=== PATIENT | male | born 1975 | race Hispanic/Latino ===

== ENCOUNTER 2018-05-09 18:48 | Emergency (ER) | payer SELFPAY ==
[2018-05-09 19:00] VITALS: BP 142/89
[2018-05-09 19:26] LABS: Hematocrit 49.7 % (35.5-45.6); Hemoglobin 16.7 gm/dl (11.8-15.2); Mean Corpuscular HGB Conc 34 % (32-34); Mean Corpuscular Volume 93 fl (84-94); Platelet Count 281 K/mm3 (140-440); Red Blood Count 5.33 M/mm3 (3.65-5.03); Red Cell Distribution Width 14.1 % (13.2-15.2)
[2018-05-09 19:40] LABS: BUN/Creatinine Ratio 14; Blood Urea Nitrogen 14 mg/dL (9-20); Calcium 9.7 mg/dL (8.4-10.2); Hemolysis Index 11
[2018-05-09] MEDS ORDERED: NORCO 5/325 PO ONE (19:54)
[2018-05-09] MEDS ORDERED: ALUM-MAG HYDROX-SIMETH 200-200-20MG/5ML PO ONE (19:54)
[2018-05-09] MEDS ORDERED: LIDOCAINE VISCOUS 2% PO ONE (19:54)
--- NOTE | 2018-05-09 20:35 | Emergency Department Report ---
ED Fall HPI - General Chief Complaint: Extremity Injury, Lower Stated Complaint: LEFT SIDE NUMB/CANT WALK Time Seen by Provider: 05/09/18 19:44 Source: patient Mode of arrival: Wheelchair - History of Present Illness Initial Comments: Patient is a 43-year-old -[place] male who states, will follow this morning now her left wrist and left ankle pain and swelling pain rated at 7/10 achy exacerbated by movement and relieved by nothing there's no numbness no tingling or paralysis patient pt states unable to walk on left ankle. There is no laceration or abrasion is no bleeding. Patient does endorse intermittent epigastric pain intermittently for past year has history of GERD not taking her medications at this time there is no sob no n/v no diaphoresis no dizziness no lightheadedness. Complaint: fall Onset/Timin -: days(s) Fall From: standing When Fall Occurred: other (this am ) Fall Witnessed: no Place Fall Occurred: home Loss of Consciousness: none Prolonged Down Time?: no Symptoms Prior to Fall: none Location - Extremities: Left: Hand, Ankle Severity: moderate Severity scale (0 -10): 4 Quality: aching Context: tripped/slipped Associated Symptoms: denies: numbness, weakness - Related Data Previous Rx's Medication Instructions Recorded Last Taken Type Albuterol Sulfate [Ventolin HFA] 2 puff IH Q4H PRN #1 hfa.aer.ad 04/13/14 Unknown Rx Azithromycin [Zithromax Z-ALEX] 250 mg PO DAILY #6 tablet 04/13/14 Unknown Rx Cyclobenzaprine [Flexeril] 10 mg PO BID PRN #20 tablet 05/09/18 Unknown Rx Famotidine [Pepcid] 20 mg PO BID #60 tablet 05/09/18 Unknown Rx Menthol/Camphor [[place] 1 applicatio TP QID PRN #1 tube 05/09/18 Unknown Rx Ointment] Naproxen 500 mg PO BID PRN #30 tablet 05/09/18 Unknown Rx Allergies Allergy/AdvReac Type Severity Reaction Status Date / Time No Known Allergies Allergy Unverified 04/13/14 14:10 ED Review of Systems ROS: Stated complaint: LEFT SIDE NUMB/CANT WALK Other details as noted in HPI Constitutional: denies: chills, fever Eyes: denies: eye pain, eye discharge, vision change ENT: denies: ear pain, throat pain Respiratory: denies: cough, shortness of breath, wheezing Cardiovascular: denies: chest pain, palpitations Endocrine: no symptoms reported Gastrointestinal: denies: abdominal pain, nausea, diarrhea Genitourinary: denies: urgency, dysuria Musculoskeletal: denies: back pain, joint swelling, arthralgia Skin: denies: rash, lesions Neurological: denies: headache, weakness, paresthesias Psychiatric: denies: anxiety, depression Hematological/Lymphatic: denies: easy bleeding, easy bruising ED Past Medical Hx - Past Medical History Hx Hypertension: Yes Hx Psychiatric Treatment: Yes (DEPRESSION) Hx Asthma: Yes Additional medical history: Heart Cath-2010 - Surgical History Past Surgical History?: No Additional Surgical History: Left ankle Fx in 2 places - Social History Smoking Status: Current Every Day Smoker Substance Use Type: Alcohol - Medications Home Medications: Home Medications Medication Instructions Recorded Confirmed Last Taken Type Albuterol Sulfate [Ventolin HFA] 2 puff IH Q4H PRN #1 hfa.aer.ad 04/13/14 Unknown Rx Azithromycin [Zithromax Z-ALEX] 250 mg PO DAILY #6 tablet 04/13/14 Unknown Rx Cyclobenzaprine [Flexeril] 10 mg PO BID PRN #20 tablet 05/09/18 Unknown Rx Famotidine [Pepcid] 20 mg PO BID #60 tablet 05/09/18 Unknown Rx Menthol/Camphor [[place] 1 applicatio TP QID PRN #1 tube 05/09/18 Unknown Rx Ointment] Naproxen 500 mg PO BID PRN #30 tablet 05/09/18 Unknown Rx ED Physical Exam - General Limitations: No Limitations General appearance: alert, in no apparent distress - Head Head exam: Present: atraumatic, normocephalic, normal inspection - Expanded Head Exam Expanded Head exam: Absent: laceration, abrasion, contusion, hematoma, racoon eyes, gudino's sign, general tenderness, tenderness of temporal artery, CSF rhinorrhea, CSF otorrhea - Eye Eye exam: Present: normal appearance, PERRL, EOMI Pupils: Present: normal accommodation - ENT ENT exam: Present: normal exam, mucous membranes moist, TM's normal bilaterally, normal external ear exam - Neck Neck exam: Present: normal inspection, full ROM. Absent: tenderness, meningismus, lymphadenopathy, thyromegaly - Expanded Neck Exam Expanded Neck exam: Absent: tenderness, midline deformity, anterior neck swelling, thyroid mass, carotid bruit, tracheal deviation - Respiratory Respiratory exam: Present: normal lung sounds bilaterally. Absent: respiratory distress, wheezes, stridor, chest wall tenderness - Cardiovascular Cardiovascular Exam: Present: regular rate, normal rhythm, normal heart sounds. Absent: systolic murmur, diastolic murmur, rubs, gallop - GI/Abdominal GI/Abdominal exam: Present: soft, normal bowel sounds. Absent: bruit, hernia - Rectal Rectal exam: Present: deferred - Extremities Exam Extremities exam: Present: normal inspection, full ROM, tenderness (left ankle , left wrist pain ), normal capillary refill, joint swelling, calf tenderness. Absent: pedal edema - Expanded Upper Extremity Exam Left Hand Wrist exam: Present: full ROM, tenderness (mahad ), other (rom intact unrestricted distal pulses intact ). Absent: swelling, abrasion, laceration, ecchymosis, deformity, crepidus, dislocation, erythema, amputation, nail avulsio n, subungual hematoma Neuro motor exam: Present: wrist extension intact, thumb opposition intact, thumb IP flexion intact, thumb adduction intact, fingers 2-5 abduction intact Neurosensory exam: Present: 2-point discrimination, radial nerve intact, ulnar nerve intact, median nerve intact Vascular: Present: normal capillary refill, radial pulse, brachial pulse, ulnar pulse. Absent: vascular compromise, pulse deficit radial art, pulse deficit ulnar art, pulse deficit brachial art - Expanded Lower Extremity Exam Left Ankle exam: Present: normal inspection, full ROM, tenderness, swelling (mild left lateral ankle swelling no deformity pain with rotation neg thompsons test ). Absent: abrasion, laceration, ecchymosis, deformity, crepidus, dislocation, erythema, anterior draw sign Foot/Toe exam: Present: normal inspection, full ROM. Absent: tenderness Neuro vascular tendon exam: Present: no vascular compromise. Absent: pulse deficit, motor deficit, sensory deficit, tendon deficit Gait: Positive: observed and limited by pain - Back Exam Back exam: Present: normal inspection, full ROM. Absent: tenderness, CVA tenderness (R), CVA tenderness (L), muscle spasm, paraspinal tenderness, vertebral tenderness, rash noted - Expanded Back Exam Expanded Back exam: Absent: saddle anesthesia Back exam: Negative Straight Leg Raising: Left, Right - Neurological Exam Neurological exam: Present: alert, oriented X3, CN II-XII intact. Absent: motor sensory deficit, reflexes normal - Expanded Neurological Exam Expanded Patient oriented to: Present: person, place, time Speech: Present: fluid speech Cranial nerves: EOM's Intact: Normal, Gag Reflex: Normal, Tongue Deviation: Normal, Nystagmus: Normal, Facial Sensation: Normal Cerebellar function: Finger to Nose: Normal, Heel to Bach: Normal, Romberg: Normal Upper motor neuron: Jake Neglect: Normal, Pronator Drift: Normal, Babinski Sign: Normal, Sensory Extinction: Normal Sensory exam: Upper Extremity Light Touch: Normal, Upper Extremity Pin Prick: Normal, Upper Extremity Temperature: Normal, UE 2 Point Discrimination: Normal, Lower Extremity Light Touch: Normal, Lower Extremity Pin Prick: Normal, Lower Extremity Temperature: Normal, LE 2 Point Discrimination: Normal Motor strength exam: RUE: 5, LUE: 5, RLE: 5, LLE: 5 DTR: knee (R): 2+, knee (L): 2+, ankle (R): 2+, ankle (L): 2+ Best Eye Response (Lindsey): (4) open spontaneously Best Motor Response ([place]): (6) obeys commands Best Verbal Response (Lindsey): (5) oriented Lindsey Total: 15 ED Course Vital Signs 05/09/18 18:52 Temperature 98 F Pulse Rate 63 Respiratory 18 Rate Blood Pressure 142/89 O2 Sat by Pulse 98 Oximetry ED Medical Decision Making - Lab Data Result diagrams: 05/09/18 19:13 05/09/18 19:13 - Radiology Data Radiology results: report reviewed, image reviewed Findings [facility] [address] [place] [address] XRay Report Signed Patient: CARTER ALMODOVAR MR#: [id number] : 10/04/1985 Acct:[id number] Age/Sex: 32 / M ADM Date: 05/09/18 Loc: ED Attending Dr: Ordering Physician: BIBI SANTOS NP Date of Service: 05/09/18 Procedure(s): XR abdomen 1V ap Accession Number(s): [id number] cc: BIBI SANTOS NP Fluoro Time In Minutes: FINAL REPORT EXAM: XR ABDOMEN 1V AP HISTORY: abd pain TECHNIQUE: Frontal view of the abdomen and pelvis Comparison: None FINDINGS: The bowel gas pattern is nonobstructive with air in nondistended loops of small bowel and colon. There is no definite evidence of pneumoperitoneum nor organomegaly on this single frontal view. The bony structures are unremarkable. IMPRESSION: 1. No definite plain film evidence of an acute intra-abdominal process on this single frontal view. If there is a clinical concern of an acute intra-abdominal process, CT abdomen and pelvis may be helpful. Transcribed By: ED Dictated By: PJ MAN MD Electronically Authenticated By: PJ MAN MD Signed Date/Time: 05/09/182125 Findings [facility] [address] [place] [address] XRay Report Signed Patient: PIA PELAEZ MR#: [id number] : 1975 Acct:[id number] Age/Sex: 43 / M ADM Date: 05/09/18 Loc: ED Attending Dr: Ordering Physician: MARTHA TOBIN MD Date of Service: 05/09/18 Procedure(s): XR ankle 3+V LT Accession Number(s): [id number] cc: MARTHA TOBIN MD Fluoro Time In Minutes: FINAL REPORT PROCEDURE: XR ANKLE 3+V LT TECHNIQUE: LEFT ankle radiographs, AP, lateral, and oblique views. CPT 31315 HISTORY: pain/swelling r/t fall COMPARISON: No prior studies are available for comparison. FINDINGS: Bony alignment and joint spaces are within normal limits. An acute fracture is not identified. Minimal degree osteophyte formation is noted. Soft tissues are unremarkable. No radiopaque foreign bodies. IMPRESSION: Minimal osteoarthritis No acute fracture. Transcribed By: [facility] Dictated By: VESTA TOLENTINO Electronically Authenticated By: VESTA TOLENTINO Signed Date/Time: 05/09/182147 - Medical Decision Making X-ray wrist normal fractional soft tissue abnormality ankle mild osteoarthritis no acute fracture no soft tissue abnormality plan Otoniel wrap ankle NSAIDs muscle relaxants analgesic balm refill Pepcid by mouth twice a day follow with PCP in 2-3 days ankle and wrist exercises . Chest pain relieved with antacid given an EGD EKG normal sinus rhythm Return to emergency should symptoms worsen patient verbalized agreement and understanding with saline Critical care attestation.: If time is entered above; I have spent that time in minutes in the direct care of this critically ill patient, excluding procedure time. ED Disposition Clinical Impression: GERD (gastroesophageal reflux disease) Qualifiers: Esophagitis presence: without esophagitis Qualified Code(s): K21.9 - Gastro-esophageal reflux disease without esophagitis Wrist strain Qualifiers: Encounter type: initial encounter Laterality: left Qualified Code(s): S66.912A - Strain of unspecified muscle, fascia and tendon at wrist and hand level, left hand, initial encounter Left ankle strain Qualifiers: Encounter type: initial encounter Qualified Code(s): S96.912A - Strain of unspecified muscle and tendon at ankle and foot level, left foot, initial encounter Osteoarthritis of ankle, left Qualifiers: Osteoarthritis type: unspecified Qualified Code(s): M19.072 - Primary osteoarthritis, left ankle and foot Disposition: TO HOME OR SELFCARE Is pt being admited?: No Does the pt Need Aspirin: No Condition: Stable Instructions: Osteoarthritis (ED), Ankle Exercises (GEN), Wrist Injury (ED) Prescriptions: Cyclobenzaprine [Flexeril] 10 mg PO BID PRN #20 tablet PRN Reason: Muscle Spasm Famotidine [Pepcid] 20 mg PO BID #60 tablet Menthol/Camphor [[place] Ointment] 1 applicatio TP QID PRN #1 tube PRN Reason: pain Naproxen 500 mg PO BID PRN #30 tablet PRN Reason: pain Referrals: JACQUI ANAYA MD [Primary Care Provider] - 3-5 Days Forms: Work/School Release Form(ED) Time of Disposition: 22:15
--- NOTE | 2018-05-09 21:47 | XRay Report ---
FINAL REPORT PROCEDURE: XR WRIST 3+V LT TECHNIQUE: LEFT wrist radiographs, including AP, lateral, and oblique views. CPT 50556 HISTORY: pain/swelling r/t fall COMPARISON: No prior studies are available for comparison. FINDINGS: Fracture (s) and/or Dislocation(s): None . Alignment: Normal . Joint space(s): Normal . Soft tissues: Normal . Bone mineralization: Normal . Foreign bodies: None . IMPRESSION: Normal Examination.
--- NOTE | 2018-05-09 21:48 | XRay Report ---
FINAL REPORT PROCEDURE: XR ANKLE 3+V LT TECHNIQUE: LEFT ankle radiographs, AP, lateral, and oblique views. CPT 37588 HISTORY: pain/swelling r/t fall COMPARISON: No prior studies are available for comparison. FINDINGS: Bony alignment and joint spaces are within normal limits. An acute fracture is not identified. Minima l degree osteophyte formation is noted. Soft tissues are unremarkable. No radiopaque foreign bodies. IMPRESSION: Minimal osteoarthritis No acute fracture.
== END 2018-05-09 22:30 | disposition home or self-care (01) ==
LOC: ED 18:48
DX: S66.912A Strain of unspecified muscle, fascia and tendon at wrist and hand level, left hand, initial encounter (principal); S96.912A Strain of unspecified muscle and tendon at ankle and foot level, left foot, initial encounter; K21.9 Gastro-esophageal reflux disease without esophagitis; I10 Essential (primary) hypertension; F32.9 Major depressive disorder, single episode, unspecified; J45.909 Unspecified asthma, uncomplicated; F17.200 Nicotine dependence, unspecified, uncomplicated; W01.198A Fall on same level from slipping, tripping and stumbling with subsequent striking against other object, initial encounter; Y93.89 Activity, other specified; Y92.89 Other specified places as the place of occurrence of the external cause; Y99.8 Other external cause status
CPT/HCPCS: 36415; 80048; 84484; 85027; 93005; 93010; 99284

== ENCOUNTER 2020-06-19 07:25 | Emergency (ER) | payer SELFPAY ==
[2020-06-19] MEDS ORDERED: KETOROLAC 30 MG/1 ML INJ IV ONE (07:55)
[2020-06-19] MEDS ORDERED: SODIUM CHLORIDE 0.9% 1000 ML 1,000 ML IV ONE (07:55)
[2020-06-19] MEDS ORDERED: MORPHINE 2 MG/1 ML INJ IV ONE (07:55)
--- NOTE | 2020-06-19 07:59 | Emergency Department Report ---
ED Back Pain/Injury HPI - General Chief Complaint: Back Pain/Injury Stated Complaint: ABDOMINAL PAIN Time Seen by Provider: 06/19/20 07:40 Source: EMS Limitations: No Limitations - History of Present Illness Initial Comments: 45-year-old male, history of gastritis, presents to ED with right-sided back pain. Patient states pain began approximately 2 weeks ago. Patient states t here was initially a "knot "in his back in that area. Patient states now the knot has resolved, however pain is present. Patient states he coughed on yesterday and felt something pop in the mid right back. Patient now has increased pain with movement. Patient denies any shortness of breath, fever, hematuria, dysuria, urinary frequency. Patient states he used Tylenol and icy hot patches without relief. MD Complaint: back pain -: week(s) (2) Similar Symptoms Previously: No Radiation: none Severity: moderate Quality: sharp Consistency: constant Improves With: immobilization Worsens With: movement Context: unknown Associated Symptoms: cough. denies: chest pain, numbness, difficulty urinating, incontinence, fever/chills, abdominal pain, nausea/vomiting, shortness of breath Treatments Prior to Arrival: acetaminophen, other (IcyHot patch) - Related Data Previous Rx's Medication Instructions Recorded Last Taken Type Naproxen [Naprosyn] 500 mg PO BID #20 tablet 06/19/20 Unknown Rx methOCARBAMOL [Robaxin TAB] 500 mg PO Q8HR PRN #20 tablet 06/19/20 Unknown Rx traMADoL [Ultram] 50 mg PO Q6HR PRN #7 tablet 06/19/20 Unknown Rx Allergies Allergy/AdvReac Type Severity Reaction Status Date / Time No Known Allergies Allergy Verified 06/19/20 07:39 ED Review of Systems ROS: Stated complaint: ABDOMINAL PAIN Other details as noted in HPI Comment: All other systems reviewed and negative Constitutional: denies: chills, fever Respiratory: cough. denies: shortness of breath Cardiovascular: denies: chest pain Gastrointestinal: denies: abdominal pain, nausea, vomiting Genitourinary: denies: dysuria, frequency, hematuria Musculoskeletal: back pain Neurological: denies: weakness, numbness, paresthesias ED Past Medical Hx - Past Medical History Hx Hypertension: Yes Hx Psychiatric Treatment: Yes (DEPRESSION) Hx Asthma: Yes Additional medical history: Heart Cath-2010 - Surgical History Additional Surgical History: Left ankle Fx in 2 places - Social History Smoking Status: Current Every Day Smoker Substance Use Type: Marijuana - Medications Home Medications: Home Medications Medication Instructions Recorded Confirmed Last Taken Type Naproxen [Naprosyn] 500 mg PO BID #20 tablet 06/19/20 Unknown Rx methOCARBAMOL [Robaxin TAB] 500 mg PO Q8HR PRN #20 tablet 06/19/20 Unknown Rx traMADoL [Ultram] 50 mg PO Q6HR PRN #7 tablet 06/19/20 Unknown Rx ED Physical Exam - General Limitations: No Limitations General appearance: alert, in no apparent distress - Head Head exam: Present: atraumatic, normocephalic - Eye Eye exam: Present: normal appearance, EOMI - ENT ENT exam: Present: mucous membranes moist - Neck Neck exam: Present: normal inspection - Respiratory Respiratory exam: Present: normal lung sounds bilaterally. Absent: respiratory distress - Cardiovascular Cardiovascular Exam: Present: regular rate, normal rhythm - GI/Abdominal GI/Abdominal exam: Present: soft. Absent: distended, tenderness - Extremities Exam Extremities exam: Present: normal inspection - Back Exam Back exam: Present: CVA tenderness (R), paraspinal tenderness (Right mid back) - Neurological Exam Neurological exam: Present: alert, oriented X3. Absent: motor sensory deficit - Psychiatric Psychiatric exam: Present: normal affect, normal mood - Skin Skin exam: Present: warm, dry, intact, normal color ED Course Vital Signs 06/19/20 06/19/20 06/19/20 07:33 07:35 08:00 Temperature 98.5 F Pulse Rate 64 74 Respiratory 18 12 15 Rate Blood Pressure 145/87 145/87 O2 Sat by Pulse 98 97 Oximetry 06/19/20 06/19/20 06/19/20 08:30 09:00 09:30 Temperature Pulse Rate 75 66 Respiratory 14 17 16 Rate Blood Pressure 140/73 154/89 O2 Sat by Pulse 96 97 97 Oximetry 06/19/20 10:00 Temperature Pulse Rate Respiratory 16 Rate Blood Pressure 126/66 O2 Sat by Pulse 96 Oximetry ED Medical Decision Making - Lab Data Result diagrams: 06/19/20 08:10 06/19/20 08:10 - Radiology Data Radiology results: report reviewed, image reviewed - Medical Decision Making 45-year-old man presents to ED with right midthoracic pain x2 weeks. Vitals are normal except for mildly elevated blood pressure. Labs are normal including UA. Chest x-ray and CT abdomen pelvis showed no acute findings. Pain is likely secondary to muscle strain. Patient has received IV fluids, Toradol, and morphine. He is feeling much better at this time. Will discharge home with prescriptions. Outpatient follow-up advised, return precautions given. - Differential Diagnosis Kidney stone, pyelonephritis, pneumonia, pneumothorax Critical care attestation.: If time is entered above; I have spent that time in minutes in the direct care o f this critically ill patient, excluding procedure time. ED Disposition Clinical Impression: Acute thoracic myofascial strain Disposition: TO HOME OR SELFCARE Is pt being admited?: No Condition: Stable Instructions: How to Use Cold Therapy, [id number], Muscle Strain, [id number] Prescriptions: Naproxen [Naprosyn] 500 mg PO BID #20 tablet methOCARBAMOL [Robaxin TAB] 500 mg PO Q8HR PRN #20 tablet PRN Reason: Muscle Spasm traMADoL [Ultram] 50 mg PO Q6HR PRN #7 tablet PRN Reason: Pain Referrals: PRIMARY CARE, [Primary Care Provider] - 3-5 Days [facility] [Provider Group] - 3-5 Days Time of Disposition: 10:19
[2020-06-19 08:10] LABS: Bilirubin,Urine NEG (Negative); Blood,Urine NEG (Negative); Color,Urine Yellow (Yellow); Protein,Urine <15 mg/dL mg/dL (Negative); Urobilinogen,Urine < 2.0 mg/dL (<2.0)
[2020-06-19 08:53] LABS: Basophils % (Auto) 0.7 % (0.0-1.8); Eosinophils # (Auto) 0.2 K/mm3 (0.0-0.4); Eosinophils % (Auto) 3.7 % (0.0-4.3); Hematocrit 41.6 % (35.5-45.6); Hemoglobin 14.2 gm/dl (11.8-15.2); Lymphocytes # (Auto) 1.6 K/mm3 (1.2-5.4); Lymphocytes % (Auto) 31.1 % (13.4-35.0); Mean Corpuscular HGB Conc 34 % (32-34); Mean Corpuscular Volume 94 fl (84-94); Monocytes # (Auto) 0.6 K/mm3 (0.0-0.8); Monocytes % (Auto) 12.3 % (0.0-7.3); Platelet Count 294 K/mm3 (140-440); Red Blood Count 4.43 M/mm3 (3.65-5.03); Red Cell Distribution Width 13.5 % (13.2-15.2)
--- NOTE | 2020-06-19 08:59 | XRay Report ---
CHEST 1 VIEW 06/19/2020 8:43 AM INDICATION / CLINICAL INFORMATION: right posterior chest pain. COMPARISON: None available. FINDINGS: SUPPORT DEVICES: None. HEART / MEDIASTINUM: No significant abnormality. LUNGS / PLEURA: No significant pulmonary or pleural abnormality. No pneumothorax. ADDITIONAL FINDINGS: No significant additional findings. IMPRESSION: 1. No acute findings. Signer Name: Godfrey Beach MD Signed: 06/19/2020 8:55 AM Workstation Name: [id number]
[2020-06-19 09:15] LABS: Alanine Aminotransferase 26 units/L (7-56); Albumin 3.9 g/dL (3.9-5); BUN/Creatinine Ratio 13; Blood Urea Nitrogen 13 mg/dL (9-20); Calcium 8.4 mg/dL (8.4-10.2); Hemolysis Index 14
[2020-06-19 09:16] LABS: Bilirubin,Direct < 0.2 mg/dL (0-0.2)
--- NOTE | 2020-06-19 10:07 | Cat Scan Report ---
CT abdomen pelvis wo con INDICATION: right flank pain. TECHNIQUE: All CT scans at this location are performed using CT dose reduction for ALARA by means of automated e xposure control. COMPARISON: None available. FINDINGS: Lung bases are clear of acute disease. Liver, spleen, pancreas, kidneys and adrenals are negative on this noncontrast exam. Abdominal aorta is normal in size. No adenopathy. Pelvis Normal appendix. Urinary bladder and distal ureters are negative. The right ureter can be followed th roughout its length, and no calculi can be identified. Prostate is very mildly enlarged. No significa nt bowel abnormalities. No acute skeletal lesions. IMPRESSION: 1. No significant abnormality. Signer Name: Roc Grant MD Signed: 06/19/2020 10:02 AM Workstation Name: [id number]
[2020-06-19 10:41] VITALS: BP 126/66
== END 2020-06-19 10:41 | disposition home or self-care (01) ==
LOC: ED 07:25
DX: S29.012A Strain of muscle and tendon of back wall of thorax, initial encounter (principal); I10 Essential (primary) hypertension; F32.9 Major depressive disorder, single episode, unspecified; J45.909 Unspecified asthma, uncomplicated; F17.200 Nicotine dependence, unspecified, uncomplicated; F12.10 Cannabis abuse, uncomplicated; Z79.899 Other long term (current) drug therapy; X58.XXXA Exposure to other specified factors, initial encounter; Y93.89 Activity, other specified; Y92.89 Other specified places as the place of occurrence of the external cause; Y99.8 Other external cause status
CPT/HCPCS: 36415; 71045; 74176; 80048; 80076; 81001; 85025; 96361; 96374; 96375; 99284; J1885; J2270; J7030

== ENCOUNTER 2021-08-12 17:32 | Emergency (ER) | payer SELFPAY ==
[2021-08-12] MEDS ORDERED: NALOXONE 0.4 MG/1 ML INJ IV PRN (17:57)
--- NOTE | 2021-08-12 17:58 | Event Note ---
Date: 08/12/21 Verbal report received from emergency medical services. EMS documentation not available at time of chart dictation Medical screening examination note: 46-year-old gentleman brought to the hospital by EMS with an EMS articulated complaint of convulsive activity, no trauma, found in bed, possible overdose, patient had prehospital diminishment of mental status, which improved after Narcan administration. The patient is awake, breathing spontaneously, and moving 4 extremities. Laboratory studies, EKG, as needed Narcan, noncontrast CT scan of the brain ordered, detailed history and physical to be performed by ER provider Vital Signs 08/12/21 17:51 Temperature 98.1 F Pulse Rate 81 Respiratory 16 Rate Blood Pressure 168/82 [Right] O2 Sat by Pulse 96 Oximetry
[2021-08-12 18:23] LABS: Basophils % (Auto) 0.2 % (0.0-1.8); Eosinophils # (Auto) 0.1 K/mm3 (0.0-0.4); Eosinophils % (Auto) 0.6 % (0.0-4.3); Hematocrit 47.5 % (35.5-45.6); Lymphocytes % (Auto) 22.3 % (13.4-35.0); Mean Corpuscular HGB Conc 34 % (32-34); Mean Corpuscular Volume 92 fl (84-94); Monocytes # (Auto) 0.7 K/mm3 (0.0-0.8); Platelet Count 346 K/mm3 (140-440); Red Blood Count 5.15 M/mm3 (3.65-5.03); Red Cell Distribution Width 13.7 % (13.2-15.2)
--- NOTE | 2021-08-12 18:25 | XRay Report ---
CHEST 1 VIEW INDICATION / CLINICAL INFORMATION: Altered Mental Status STUDY TIME: 1804 COMPARISON: 06/19/2019 FINDINGS: SUPPORT DEVICES: None HEART / MEDIASTINUM: No significant abnormality. LUNGS / PLEURA: No significant acute pulmonary or pleural abnormality. No pneumothorax. ADDITIONAL FINDINGS: No significant additional findings. Signer Name: Rashid Gomez MD Signed: 08/12/2021 6:21 PM Workstation Name: [id number]
[2021-08-12 18:34] LABS: INR 0.93 (0.87-1.13)
[2021-08-12 18:37] LABS: Alanine Aminotransferase 24 units/L (7-56); Albumin 4.7 g/dL (3.9-5); BUN/Creatinine Ratio 12; Blood Urea Nitrogen 14 mg/dL (9-20); Calcium 9.2 mg/dL (8.4-10.2); Hemolysis Index 6
--- NOTE | 2021-08-12 18:51 | Emergency Department Report ---
ED General Adult HPI - General Chief complaint: Altered Mental Status Stated complaint: Chief complaint: I do not remember what happened to me Time Seen by Provider: 08/12/21 18:49 Source: patient, family, EMS (Verbal report received from emergency medical services. EMS documentation not available at time of chart dictation ), RN notes reviewed, old records reviewed Mode of arrival: Stretcher Limitations: Other (Patient does not remember what happened) - History of Present Illness Initial comments: The patient is a 46-year-old gentleman. He is brought to the hospital by EMS with an EMS articulated complaint of probable overdose, nontraumatic, found in bed, with response to Narcan. Patient himself states that he snorted something by nose, for recreational reasons, which was provided to him by a friend. He does not know what he snorted. His at the bedside states that the patient was unresponsive and had 2 convulsive events, and she had to perform [id number]. The patient himself denies headache, neck pain, chest pain, abdominal pain, shortness of breath, homicidality, suicidality, hallucinations, access to guns or firearms. He denies urinary symptoms. He notes that he is a hospital at this time. To the best of his recollection, this has not happened to him in the past -: Sudden Severity scale (0 -10): 0 Consistency: now resolved Improves with: medication Associated Symptoms: denies other symptoms, other (Postevent confusion, history of convulsion) - Related Data Previous Rx's Medication Instructions Recorded Last Taken Type Naloxone HCl [Narcan Nasal Thida] 4 mg NS PRN PRN #1 spray 08/12/21 Unknown Rx Ondansetron [Zofran Odt] 4 mg PO Q8HR PRN #20 tab.rapdis 08/12/21 Unknown Rx Pantoprazole [Protonix] 40 mg PO QDAY #30 tablet 08/12/21 Unknown Rx Allergies Allergy/AdvReac Type Severity Reaction Status Date / Time No Known Allergies Allergy Verified 06/19/20 07:39 ED Review of Systems ROS: Stated complaint: OVERDOSE Other details as noted in HPI Constitutional: malaise. denies: fever Eyes: denies: eye discharge ENT: denies: epistaxis Respiratory: denies: cough Cardiovascular: denies: chest pain Gastrointestinal: denies: abdominal pain Neurological: confusion Psychiatric: denies: anxiety, depression, auditory hallucinations, visual hallucinations, homicidal thoughts, suicidal thoughts ED Past Medical Hx - Past Medical History Hx Hypertension: Yes Hx Psychiatric Treatment: Yes (DEPRESSION) Hx Asthma: Yes Additional medical history: Heart Cath-2010 - Surgical History Additional Surgical History: Left ankle Fx in 2 places - Social History Smoking Status: Current Every Day Smoker Substance Use Type: Marijuana - Medications Home Medications: Home Medications Medication Instructions Recorded Confirmed Last Taken Type Naloxone HCl [Narcan Nasal Thida] 4 mg NS PRN PRN #1 spray 08/12/21 Unknown Rx Ondansetron [Zofran Odt] 4 mg PO Q8HR PRN #20 tab.rapdis 08/12/21 Unknown Rx Pantoprazole [Protonix] 40 mg PO QDAY #30 tablet 08/12/21 Unknown Rx ED Physical Exam - General Limitations: No Limitations General appearance: alert, anxious - Head Head exam: Present: atraumatic, normocephalic - Eye Eye exam: Present: EOMI. Absent: normal appearance (Pinpoint pupils are noted bilaterally), nystagmus - ENT ENT exam: Present: mucous membranes moist - Neck Neck exam: Present: normal inspection - Respiratory Respiratory exam: Present: normal lung sounds bilaterally. Absent: respiratory distress - Cardiovascular Cardiovascular Exam: Present: regular rate, normal rhythm. Absent: systolic murmur, diastolic murmur, rubs, gallop - GI/Abdominal GI/Abdominal exam: Present: soft, normal bowel sounds - Rectal Rectal exam: Present: deferred - Extremities Exam Extremities exam: Present: normal inspection - Back Exam Back exam: Present: normal inspection - Neurological Exam Neurological exam: Present: alert, oriented X3 - Psychiatric Psychiatric exam: Present: normal affect, normal mood - Skin Skin exam: Present: warm, dry, intact, normal color. Absent: rash ED Course Vital Signs 08/12/21 08/12/21 17:51 20:03 Temperature 98.1 F Pulse Rate 81 Respiratory 16 Rate Blood Pressure 168/82 [Right] O2 Sat by Pulse 96 Oximetry O2 Sat by Pulse 99 Oximetry [ Digit-Finger] - Reevaluation(s) Reevaluation #1: 08/12/21 19:18 Differential diagnosis, include but not limited to: Opioid overdose, electrolyte derangement, thyroid derangement, intracranial hemorrhage Assessment and plan: 46-year-old gentleman who reports being in his usual state of health, then snorted or ingested an unknown substance provided to him by a friend, for recreational reasons, who is awake, and alert to name, not homicidal or suicidal, cooperative, with small pupils, response to Narcan as per EMS, highly suspicious for accidental opioid ingestion and overdose. Laboratory studies nonactionable. Chest x-ray and noncontrast CT scan of the brain nonactionable. Observed patient in this ER for clinical sobriety. Discussed this with the patient and family. They articulated understanding. Next 08/12/21 20:02 Laboratory studies unremarkable. Patient given water which she drank without difficulty. A little bit later, he had some mild nausea and vomiting. There was some redness in his emesis. His sister is at the bedside, Mrs. Patience Vang; [phone] With the patient's permission, discussed his history, physical, laboratory studies and clinical impression. Patient made n.p.o. at this time. Zofran and Protonix ordered. Most likely Elsi-Reyes tear. Discussed this with the patient and his sister. Observe pending clinical sobriety. Avoid NSAIDs. Avoid alcohol. 08/12/21 22:14 Patient is drinking water. Not actively vomiting. Heart rate 87 bpm. O2 sat 97% on room air. Blood pressure 137/75. Patient is awake, alert, oriented and clinically sober at this time. Return precautions are reviewed. All questions answered - Pulse Oximetry Interpretation Digit-Finger Initial Pulse Oximetry Readin O2 Sat by Pulse Oximetry: 99 Actions Taken: none ED Medical Decision Making - Lab Data Result diagrams: 08/12/21 18:01 08/12/21 18:01 Vital Signs 08/12/21 17:51 Temperature 98.1 F Pulse Rate 81 Respiratory 16 Rate Blood Pressure 168/82 [Right] O2 Sat by Pulse 96 Oximetry Lab Results 08/12/21 08/12/21 08/12/21 Range/Units 18:01 18:01 18:01 WBC 9.1 (4.5-11.0) K/mm3 RBC 5.15 H (3.65-5.03) M/mm3 Hgb 16.0 H (11.8-15.2) gm/dl Hct 47.5 H (35.5-45.6) % MCV 92 (84-94) fl MCH 31 (28-32) pg MCHC 34 (32-34) % RDW 13.7 (13.2-15.2) % Plt Count 346 (140-440) K/mm3 Lymph % (Auto) 22.3 (13.4-35.0) % [place] % (Auto) 8.0 H (0.0-7.3) % Eos % (Auto) 0.6 (0.0-4.3) % Baso % (Auto) 0.2 (0.0-1.8) % Lymph # (Auto) 2.0 (1.2-5.4) K/mm3 [place] # (Auto) 0.7 (0.0-0.8) K/mm3 Eos # (Auto) 0.1 (0.0-0.4) K/mm3 Baso # (Auto) 0.0 (0.0-0.1) K/mm3 Seg Neutrophils % 68.9 (40.0-70.0) % Seg Neutrophils # 6.3 (1.8-7.7) K/mm3 PT 13.5 (12.2-14.9) Sec. INR 0.93 (0.87-1.13) Sodium 141 (137-145) mmol/L Potassium 4.1 (3.6-5.0) mmol/L Chloride 100.1 (98-107) mmol/L Carbon Dioxide 26 (22-30) mmol/L Anion Gap 19 mmol/L BUN 14 (9-20) mg/dL Creatinine 1.2 (0.8-1.3) mg/dL Estimated GFR > 60 ml/min BUN/Creatinine Ratio 12 % Glucose 279 H (75-100) mg/dL Calcium 9.2 (8.4-10.2) mg/dL Total Bilirubin 0.40 (0.1-1.2) mg/dL AST 30 (5-40) units/L ALT 24 (7-56) units/L Alkaline Phosphatase 62 (35-129) units/L Ammonia (25-60) umol/L Total Creatine Kinase 157 (55-170) units/L Troponin T < 0.010 (0.00-0.029) ng/mL Total Protein 7.1 (6.3-8.2) g/dL Albumin 4.7 (3.9-5) g/dL Albumin/Globulin Ratio 2.0 % TSH (0.270-4.200) mlU/mL Salicylates (2.8-20.0) mg/dL Acetaminophen (10.0-30.0) ug/mL Plasma/Serum Alcohol (0-0.07) % 08/12/21 08/12/21 08/12/21 Range/Units 18:01 18:01 18:01 WBC (4.5-11.0) K/mm3 RBC (3.65-5.03) M/mm3 Hgb (11.8-15.2) gm/dl Hct (35.5-45.6) % MCV (84-94) fl MCH (28-32) pg MCHC (32-34) % RDW (13.2-15.2) % Plt Count (140-440) K/mm3 Lymph % (Auto) (13.4-35.0) % [place] % (Auto) (0.0-7.3) % Eos % (Auto) (0.0-4.3) % Baso % (Auto) (0.0-1.8) % Lymph # (Auto) (1.2-5.4) K/mm3 [place] # (Auto) (0.0-0.8) K/mm3 Eos # (Auto) (0.0-0.4) K/mm3 Baso # (Auto) (0.0-0.1) K/mm3 Seg Neutrophils % (40.0-70.0) % Seg Neutrophils # (1.8-7.7) K/mm3 PT (12.2-14.9) Sec. INR (0.87-1.13) Sodium (137-145) mmol/L Potassium (3.6-5.0) mmol/L Chloride (98-107) mmol/L Carbon Dioxide (22-30) mmol/L Anion Gap mmol/L BUN (9-20) mg/dL Creatinine (0.8-1.3) mg/dL Estimated GFR ml/min BUN/Creatinine Ratio % Glucose (75-100) mg/dL Calcium (8.4-10.2) mg/dL Total Bilirubin (0.1-1.2) mg/dL AST (5-40) units/L ALT (7-56) units/L Alkaline Phosphatase (35-129) units/L Ammonia 40.0 (25-60) umol/L Total Creatine Kinase (55-170) units/L Troponin T (0.00-0.029) ng/mL Total Protein (6.3-8.2) g/dL Albumin (3.9-5) g/dL Albumin/Globulin Ratio % TSH 1.850 (0.270-4.200) mlU/mL Salicylates < 0.3 L (2.8-20.0) mg/dL Acetaminophen (10.0-30.0) ug/mL Plasma/Serum Alcohol (0-0.07) % 08/12/21 08/12/21 Range/Units 18:01 18:01 WBC (4.5-11.0) K/mm3 RBC (3.65-5.03) M/mm3 Hgb (11.8-15.2) gm/dl Hct (35.5-45.6) % MCV (84-94) fl MCH (28-32) pg MCHC (32-34) % RDW (13.2-15.2) % Plt Count (140-440) K/mm3 Lymph % (Auto) (13.4-35.0) % [place] % (Auto) (0.0-7.3) % Eos % (Auto) (0.0-4.3) % Baso % (Auto) (0.0-1.8) % Lymph # (Auto) (1.2-5.4) K/mm3 [place] # (Auto) (0.0-0.8) K/mm3 Eos # (Auto) (0.0-0.4) K/mm3 Baso # (Auto) (0.0-0.1) K/mm3 Seg Neutrophils % (40.0-70.0) % Seg Neutrophils # (1.8-7.7) K/mm3 PT (12.2-14.9) Sec. INR (0.87-1.13) Sodium (137-145) mmol/L Potassium (3.6-5.0) mmol/L Chloride (98-107) mmol/L Carbon Dioxide (22-30) mmol/L Anion Gap mmol/L BUN (9-20) mg/dL Creatinine (0.8-1.3) mg/dL Estimated GFR ml/min BUN/Creatinine Ratio % Glucose (75-100) mg/dL Calcium (8.4-10.2) mg/dL Total Bilirubin (0.1-1.2) mg/dL AST (5-40) units/L ALT (7-56) units/L Alkaline Phosphatase (35-129) units/L Ammonia (25-60) umol/L Total Creatine Kinase (55-170) units/L Troponin T (0.00-0.029) ng/mL Total Protein (6.3-8.2) g/dL Albumin (3.9-5) g/dL Albumin/Globulin Ratio % TSH (0.270-4.200) mlU/mL Salicylates (2.8-20.0) mg/dL Acetaminophen 5.0 L (10.0-30.0) ug/mL Plasma/Serum Alcohol < 0.01 (0-0.07) % - EKG Data -: EKG Interpreted by Ca EKG shows normal: sinus rhythm Rate: normal - EKG Data Interpretation: unchanged when compared t 08/12/21 19:31 Unchanged from prior EKG from April 2018 EKG is interpreted at 19: 27 Sinus rhythm, 65 bpm. Left axis deviation, left anterior fascicular block, QTC 4 4 1 ms, and normal P wave axis. This is an abnormal EKG. This is not a STEMI. There is high left ventricular voltage. - Radiology Data Radiology results: pending, report reviewed, image reviewed CT head/brain wo con INDICATION / CLINICAL INFORMATION: 46 years Male; Altered Mental Status. TECHNIQUE: Routine CT head without contrast. All CT scans at this location are performed using CT dose reduction for ALARA by means of automated exposure control. COMPARISON: None. FINDINGS: BRAIN / INTRACRANIAL CONTENTS: No acute hemorrhage, mass effect, midline shift, hydrocephalus, or acute, large territorial infarct. No signs of significant atrophy or chronic infarct. No significant white matter abnormality seen. CRANIOCERVICAL JUNCTION: No significant abnormality. ORBITS: No significant abnormality of visualized orbits. SINUSES / MASTOIDS: There may been prior trauma or a focal dehiscence to the lamina papyracea on the left. There is partial opacification of the adjacent left ethmoids. Note, there are no signs of intraorbital fatty stranding or signs of hematoma in this region. Mild mucosal thickening seen in the ethmoids on the right. There is also opacification of the hypoplastic left frontal sinus. The right frontal sinus is underdeveloped. Mucous retention cyst/polyps are seen in both maxillary antra. ADDITIONAL FINDINGS: None. IMPRESSION: 1. No focal mass, hemorrhage, hydrocephalus, or acute, large territorial infarct. 2. Would question prior trauma to the left orbital region, which may have involved the left lamina papyracea. Signer Name: Will Geller MD, III Signed: 08/12/2021 6:02 PM CHEST 1 VIEW INDICATION / CLINICAL INFORMATION: Altered Mental Status STUDY TIME: 1804 COMPARISON: 06/19/2019 FINDINGS: SUPPORT DEVICES: None HEART / MEDIASTINUM: No significant abnormality. LUNGS / PLEURA: No significant acute pulmonary or pleural abnormality. No pneumothorax. ADDITIONAL FINDINGS: No significant additional findings. Signer Name: Rashid Gomez MD Signed: 08/12/2021 5:21 PM Workstation Name: [id number] Critical care attestation.: If time is entered above; I have spent that time in minutes in the direct care of this critically ill patient, excluding procedure time. ED Disposition Clinical Impression: Drug ingestion, Convulsion, Transient alteration of awareness Disposition: 01 HOME / SELF CARE / HOMELESS Is pt being admited?: No Does the pt Need Aspirin: No Condition: Good Instructions: Opioid Overdose Additional Instructions: Do not drive or operate motor vehicles for the next 6 months, or until cleared to do so by a primary care doctor. Take the Narcan medication as needed. Do not consume alcohol, tobacco, and avoid consumption of unknown drugs and substances, and avoid consumption of all recreational drugs and substances. Follow-up with a primary care doctor within the next week. Avoid consumption of alcohol, Motrin, ibuprofen, Naprosyn, Aleve. Please return to the emergency room right away with new pain, worsened pain, giovanny ration of pain, projectile vomiting, change in mental status, confusion, inability tolerate liquid feeds, new, worsened or different symptoms not present on the initial emergency room evaluation Prescriptions: Naloxone HCl [Narcan Nasal Thida] 4 mg NS PRN PRN #1 spray PRN Reason: Opioid Reversal Pantoprazole [Protonix] 40 mg PO QDAY #30 tablet Ondansetron [Zofran Odt] 4 mg PO Q8HR PRN #20 tab.rapdis PRN Reason: Nausea Referrals: [facility] [Provider Group] - 3-5 Days [facility] [Outside] - 3-5 Days Forms: Work/School Release Form(ED)
--- NOTE | 2021-08-12 19:07 | Cat Scan Report ---
CT head/brain wo con INDICATION / CLINICAL INFORMATION: 46 years Male; Altered Mental Status. TECHNIQUE: Routine CT head without contrast. All CT scans at this location are performed using CT dos e reduction for ALARA by means of automated exposure control. COMPARISON: None. FINDINGS: BRAIN / INTRACRANIAL CONTENTS: No acute hemorrhage, mass effect, midline shift, hydrocephalus, or acu te, large territorial infarct. No signs of significant atrophy or chronic infarct. No significant whi te matter abnormality seen. CRANIOCERVICAL JUNCTION: No significant abnormality. ORBITS: No significant abnormality of visualized orbits. SINUSES / MASTOIDS: There may been prior trauma or a focal dehiscence to the lamina papyracea on the left. There is partial opacification of the adjacent left ethmoids. Note, there are no signs of intra orbital fatty stranding or signs of hematoma in this region. Mild mucosal thickening seen in the ethmoids on the right. There is also opacification of the hypopla stic left frontal sinus. The right frontal sinus is underdeveloped. Mucous retention cyst/polyps are seen in both maxillary antra. ADDITIONAL FINDINGS: None. IMPRESSION: 1. No focal mass, hemorrhage, hydrocephalus, or acute, large territorial infarct. 2. Would question prior trauma to the left orbital region, which may have involved the left lamina pa pyracea. Signer Name: Will Geller MD, III Signed: 08/12/2021 7:02 PM Workstation Name: [id number]
[2021-08-12] MEDS ORDERED: ONDANSETRON 4 MG/2 ML INJ IV ONE ×2 (20:01→22:20)
[2021-08-12] MEDS ORDERED: PANTOPRAZOLE 40 MG INJ IV ONE ×2 (20:01→22:20)
[2021-08-12 23:31] VITALS: BP 151/85
--- NOTE | 2021-08-13 10:17 | Electrocardiograph Report ---
[facility] Test Date: 2021-08-12 Test Time: 19:27:24 Pat Name: PIA PELAEZ Department: Room: Gender: M [employer] Member: MICHAEL : 1975 Requested By: REGLA MONTAGUE Order Number: [id number] Reading MD: Oracio Chambers Measurements Intervals [place] Rate: 65 P: 55 [place]: 162 QRS: -21 QRSD: 83 T: 13 QT: 427 QTc: 441 Interpretive Statements Sinus rhythm No previous ECG available for comparison Electronically Signed On 08-13-2021 10:17:05 EDT by Oracio Chambers
== END 2021-08-12 22:50 | disposition home or self-care (01) ==
LOC: ED 17:32
DX: R56.9 Unspecified convulsions (principal); T50.995A Adverse effect of other drugs, medicaments and biological substances, initial encounter; R41.82 Altered mental status, unspecified; I10 Essential (primary) hypertension; F32.9 Major depressive disorder, single episode, unspecified; F12.90 Cannabis use, unspecified, uncomplicated; Z79.899 Other long term (current) drug therapy; Y92.89 Other specified places as the place of occurrence of the external cause
CPT/HCPCS: 36415; 70450; 71045; 80053; 82140; 82550; 84443; 84484; 85025; 85610; 93005; 99284; C9113; J2405; 80320; G0480